=== PATIENT | female | born 1950 | race Caucasian/White ===

== ENCOUNTER → 2021-05-16 | Outpatient (CLI) | payer OTHER, BC ==
[~2021-05-16] VITALS: Ht 154.9 cm; Wt 98.4 kg
[~2021-05-16] MED LIST: BUMETANIDE 1 MG1 M1 PO; EXCEDRIN CAPLE1 EACH PO
--- NOTE | 2021-05-17 19:07 | PATH ---
[facility] [place] [address] PATHOLOGY RPT PROCEDURE Name: KRISTYGIN Room #: REG LATOYA Nam.#: [id number] Admission: 05/16/21 Date of : 50 Discharge: Report #: [id number] Path Case #: [id number] [facility] Accession Number: [id number] . 01 Material submitted: . PART A: duodenum - DUODENAL BIOPSIES PART B: gastrointestinal site - GASTRIC BIOPSY PART C: esophagus - ESOPHAGUS BIOPSY R/O ODEN'S . 01 Clinical history: . EGD BLOATING, EARLY SATIETY . 02 Diagnosis: A. Small bowel mucosa, duodenum, endoscopic biopsy: - Nonspecific acute and chronic duodenitis. - Negative for villous blunting or increase in intraepithelial lymphocytes. . B. Gastric mucosa, gastric, endoscopic biopsy: - Mild reactive gastropathy. - Negative for intestinal metaplasia or atrophy. - Negative for Helicobacter pylori (properly controlled immunohistochemical stain performed). . C. Gastroesophageal mucosa, rule out Oden's, endoscopic biopsy: - Specialized columnar epithelium (gastric cardia-type mucosa) with intestinal metaplasia, consistent with Oden's metaplasia. - Negative for dysplasia within Oden's mucosa. - Squamous mucosa with mild esophagitis. . (IUV:manager inventory management; 05/17/2021) MBR 05/17/2021 1605 Local . 02 Comment: C. The above diagnosis of Oden's esophagus is made due to presence of intestinal metaplasia and with the assumption that the biopsies were obtained from the columnar mucosa in the distal esophagus located at least 1 cm proximal to the top of the gastric folds as per the 2016 ACG guidelines. (IUV:manager inventory management; 05/17/2021) . 02 Electronically signed: . Savanah Dong MD, Pathologist NPI- [id number] . 01 Gross description: [place] [address] PATHOLOGY RPT PROCEDURE Name: GIN WAGNER Room #: REG CLI Julianne#: [id number] Admission: 05/16/21 Date of : 50 Discharge: Report #: [id number] Path Case #: [id number] A. The specimen is received in formalin, labeled "Gin Wagner, duodenal BXs" and consists of multiple hutchinson irregular tissues aggregating 0.8 x 0.6 x 0.2 cm which are submitted in toto in A1. . B. The specimen is received in formalin, labeled "Wagner, Gin, gastric BXs" and consists of 3 hutchinson irregular tissues aggregating 0.5 x 0.4 x 0.3 cm which are submitted in toto in B1. . C. The specimen is received in formalin, labeled "Wagner, Gin, esophagus BX" and consists of multiple hutchinson irregular tissues aggregating 0.7 x 0.5 x 0.2 cm which are submitted in toto in C1.(QUINAULT; 05/16/2021) DKA/DKA 05/17/2021 1602 Local . 02 Pathologist provided ICD-10: K29.80, K31.9, K22.70, K20.90 . 02 CPT . 091370, 581776, [id number], [id number] Specimen Comment: A courtesy copy of this report has been sent to [phone] Specimen Comment: [phone] Specimen Comment: Report sent to / DR MEJÍA Performed at: [address] [facility], [place], [place] [id number] MD Aryan Santos MD Phone: [phone] Performed at: [address] [facility] [id number] MD Savanah Dong MD Phone: [phone]
== END | disposition home or self-care (01) ==
LOC: GI 05-02 11:06
PROVIDERS: ATTEND Internal Medicine
DX: R10.13 Epigastric pain (principal); K22.70 Barrett's esophagus without dysplasia; K31.89 Other diseases of stomach and duodenum; K29.80 Duodenitis without bleeding; K20.90 Esophagitis, unspecified without bleeding; R14.0 Abdominal distension (gaseous); R68.81 Early satiety; Z98.890 Other specified postprocedural states; Z79.899 Other long term (current) drug therapy; Z20.822 Contact with and (suspected) exposure to COVID-19; Z90.49 Acquired absence of other specified parts of digestive tract; Z88.8 Allergy status to other drugs, medicaments and biological substances
CPT/HCPCS: 62110; 62900